=== PATIENT | female | born 1960 | race Caucasian/White ===

== ENCOUNTER → 2018-03-29 | Outpatient (CLI) | payer OTHER ==
[~2018-03-29] MED LIST: ALBU90I INH; ALBU90OI INH; AMIT50 PO; AZIT250 PO; AZIT500 PO; CIPHYDOTSU OT; CIPR500 PO; CYCL10 PO; GABA300 PO; HYDACE5 PO; LISHYD2012 PO; MARIJUANA; METH5 PO; METR500 PO; NAPR500 PO; OLME20 PO; PHENA200 PO; PRED10 PO; PRED20 PO; PROM25 PO; SULTRIDS PO; TRAM50 PO; UNKNOWN PAIN MED
== END | disposition home or self-care (01) ==
LOC: PLD 07:32 → LAB SHORT 07:32
DX: R93.8 Abnormal findings on diagnostic imaging of other specified body structures (principal)
CPT/HCPCS: 88305

== ENCOUNTER → 2018-10-15 | Outpatient (CLI) | payer OTHER ==
[2018-10-15 09:38] LABS: Source, Urine Clean Catch
[2018-10-15 09:55] LABS: Appearance, Urine Clear (Clear); Bilirubin, Urine Neg (Neg); Blood, Urine 1+ (Neg); Color, Urine Yellow (P-Yellow); Glucose Qualitative, Urine Neg (Neg); Ketones, Urine 1+ (Neg); Leukocyte Esterase, Urine 1+ (Neg); Nitrite, Urine Neg (Neg); Protein, Urine 1+ (Neg); Specific Gravity, Urine 1.025 (1.003-1.022); Urobilinogen, Urine NORM (Normal)
[2018-10-15 10:03] LABS: Bacteria Rare /hpf; Red Blood Cells, Urine 0-2 /hpf (0-2); Squamous Epithelial Cells Not Seen /hpf (Few); White Blood Cells, Urine 0-2 /hpf (0-5)
[2018-10-15 10:04] LABS: Calcium Oxalate Crystals Few /hpf
== END ==
LOC: LAB SHORT 09:35 → LAB 09:35 → EDSTATUS 03-16 11:50 → LAB FUT 03-16 11:50
PROVIDERS: Internal Medicine
DX: N39.0 Urinary tract infection, site not specified (principal); R33.8 Other retention of urine
CPT/HCPCS: 81001; 87086

== ENCOUNTER 2022-12-24 12:16 | Emergency (ER) | payer OTHER ==
[~2022-12-24] VITALS: Ht 162.6 cm; Wt 99.8 kg
[~2022-12-24 12:16] MED LIST changes: +AMIT10; +MOTION RELIEF25 MG PO; +THYR60
[2022-12-24] MEDS ORDERED: CARVEDILOL25 M9 PO (14:19)
[2022-12-24] MEDS ORDERED: METF500 PO (14:19)
[2022-12-24] MEDS ORDERED: AMLODIPINE BESYL5 MG PO (14:19)
[2022-12-24] MEDS ORDERED: Methocarbamol500 MG PO (14:19)
[2022-12-24] MEDS ORDERED: ERYT.5TO BOTHEYES (16:20)
== END 2022-12-24 16:24 | disposition home or self-care (01) ==
LOC: ER 12:16
DX: S05.02XA Injury of conjunctiva and corneal abrasion without foreign body, left eye, initial encounter (principal); H20.9 Unspecified iridocyclitis; I10 Essential (primary) hypertension; E11.9 Type 2 diabetes mellitus without complications; W22.8XXA Striking against or struck by other objects, initial encounter; Z88.0 Allergy status to penicillin; Z79.899 Other long term (current) drug therapy
CPT/HCPCS: A9270